=== PATIENT | female | born 1960 | race Caucasian/White ===

== ENCOUNTER 2021-01-17 00:09 | Emergency (ER) | payer BC ==
[~2021-01-17] VITALS: Ht 162.6 cm; Wt 49.9 kg
--- NOTE | 2021-01-17 00:34 | NUR ---
PATIENT CAME TO ER BED 10 C/O GLF FALL WITH NOSE ABRASION AND RIGHT SHOULDER ABRASION. PATIENT IS CURRENTLY STAYING AT THE [place] AT [facility]. PATIENT IS ALERT AND ORIENTED x4. PATIENT IS AMBULATORY WITH A STEADY GAIT. CONNECTED TO THE MONITOR.
--- NOTE | 2021-01-17 01:01 | NUR ---
CLINICAL LABORATORY DIRECTOR AT BEDSIDE FOR BLOOD DRAW
--- NOTE | 2021-01-17 01:11 | NUR ---
PATIENT TAKEN TO CT
[2021-01-17 01:16] LABS: BASOPHILS % (AUTO) 0.4 % (0.0-2.0); EOSINOPHILS % (AUTO) 0.8 % (0.0-6.0); HEMATOCRIT 35 % (33-45); HEMOGLOBIN 11.8 g/dL (11.5-14.8); LYMPHOCYTES % (AUTO) 20.7 % (20.0-44.0); MEAN CORPUSCULAR HGB CONC 34 g/dl (31.0-36.0); MEAN CORPUSCULAR VOLUME 89 fL (82-100); MONOCYTES # (AUTO) 0.7 /CMM (0.1-1.30); MONOCYTES % (AUTO) 7.4 % (2.0-12.0); NEUTROPHILS # (AUTO) 6.9 /CMM (1.8-8.9); NEUTROPHILS % (AUTO) 70.7 % (43.0-81.0); PLATELET COUNT (AUTO) 184 /CMM (150-450); RED BLOOD CELL COUNT(AUTO) 3.91 MIL/uL (4.0-5.2); WHITE BLOOD COUNT (AUTO) 9.7 K/uL (4.3-11.0)
[2021-01-17 01:26] LABS: CALCIUM, SERUM 8.5 mg/dL (8.5-10.1); CARBON DIOXIDE 23 mmol/L (21-32); CHLORIDE 103 mmol/L (98-107); CREATININE 0.8 mg/dL (0.6-1.3); GLUCOSE 107 mg/dL (74-106); POTASSIUM 3.4 mmol/L (3.5-5.1); SODIUM SERUM 138 mmol/L (136-145); UREA NITROGEN, BLOOD 14 mg/dL (7-18)
[2021-01-17 03:58] LABS: BILIRUBIN,URINE Negative (NEGATIVE); COLOR,URINE YELLOW (YELLOW); LEUKOCYTE ESTERASE ,URINE Negative (NEGATIVE); NITRITE, URINE Positive (NEGATIVE); PH,URINE 6.5 (5.0-8.0); PROTEIN,URINE Negative (NEGATIVE); UGLUCOSE Negative (NEGATIVE); UROBILINOGEN,URINE 0.2 EU/dL (0.2)
[2021-01-17 04:21] LABS: BACTERIA,URINE Few /HPF (None Seen); RBC,URINE 0-2 /HPF (0-2); SQUAMOUS EPITHELIAL CELL,UR Few /HPF (None Seen); WBC,URINE 0-2 /HPF (0-3)
[2021-01-17] MEDS ORDERED: CEPHALEXIN MONOHYDRATE 500 MG CAPSULE PO ONE ×2 (05:30→06:45)
[2021-01-17] MEDS ORDERED: CEPH500C2 PO (05:33)
--- NOTE | 2021-01-17 05:46 | NUR ---
SOPKE WITH SERVICE TEAM IN REGARDS TO PATIENT. SERVICE TEAM WILL CONTACT THE FACILITY.
--- NOTE | 2021-01-17 05:47 | NUR ---
STAFF STATES THAT SHE WILL HAVE THE FACILITY CALL BACK. NUMBER FOR [facility]: [phone].
[2021-01-17] MEDS ORDERED: PHENAZOPYRIDINE HCL 200 MG TABLET ONE (08:30)
[2021-01-17] MEDS ORDERED: PHENAZOPYRIDINE HCL 200 MG TABLET PO ONE (08:30)
--- NOTE | 2021-01-17 08:33 | NUR ---
CALLED [facility]. SPOKE TO BREAST PULLER TATIANA. WILL LET FACILITY KNOW OF PATIENTS DISCHARGE.
--- NOTE | 2021-01-17 09:29 | NUR ---
CALLED [facility]. SPOKE TO MEGHANN. STATES WILL FACILITATE TRANSFER.
--- NOTE | 2021-01-17 10:30 | NUR ---
Patient discharged to home in stable condition. Written and verbal after care instructions given. Patient verbalizes understanding of instruction. IV removed. Catheter intact and site benign. Pressure and 4x4 applied to site. No bleeding noted.
[2021-01-17 10:31] VITALS: BP 127/74
== END 2021-01-17 10:32 | disposition home or self-care (01) ==
LOC: ER 00:12
DX: S16.1XXA Strain of muscle, fascia and tendon at neck level, initial encounter (principal); S00.31XA Abrasion of nose, initial encounter; S60.512A Abrasion of left hand, initial encounter; S60.511A Abrasion of right hand, initial encounter; S80.812A Abrasion, left lower leg, initial encounter; S80.811A Abrasion, right lower leg, initial encounter; S09.8XXA Other specified injuries of head, initial encounter; R55 Syncope and collapse; W18.39XA Other fall on same level, initial encounter; Y93.89 Activity, other specified; Y92.89 Other specified places as the place of occurrence of the external cause; Y99.8 Other external cause status
CPT/HCPCS: 36415; 70450-TC; 70486-TC; 71045-TC; 71250-TC; 72125-TC; 80048-TC; 81001; 84484-TC; 85025-TC; 87086-TC